=== PATIENT | male | born 1940 | race Caucasian/White ===

== ENCOUNTER → 2017-11-12 | Outpatient (CLI) | payer MEDICARE ==
--- NOTE | 2017-11-12 14:51 | CT ---
EXAMINATION TYPE: High-resolution CT chest DATE OF EXAM: 11/12/2017 COMPARISON: 03/14/2016 HISTORY: 76 year-old male shortness of breath, Chronic obstructive pulmonary disease TECHNIQUE: Contiguous high resolution axial scanning of the chest utilizing 1 mm slice thickness and 1 cm gap. No contrast was administered. Both supine and prone imaging was performed. CT DLP: 1168 mGycm Automated exposure control for dose reduction was used. FINDINGS: The heart is normal size without pericardial effusion. Coronary vessel calcifications are present and are a marker for coronary artery disease. Ectatic ascending aorta 3.8 cm. Conventional arch vessel branching anatomy with mild atherosclerotic arch calcifications. Mild ectasia upper descending thoracic aorta 3.3 cm. Moderate right and mild left gynecomastia. No thoracic lymphadenopathy seen allowing for HRCT technique. Large caliber to the main right and left pulmonary arteries of 3.5 and 2.9 cm, respectively, suggesti ng underlying pulmonary arterial hypertension. Moderate diffuse bronchial wall thickening is noted. Strandy scarring at the right upper lobe unchanged from 2016. New patchy peripheral right mid lung densities and new strandy atelectasis or scarring at the basilar right middle lobe and peripheral right base. Aside from minimal paraseptal emphysematous change along the left heart margin, axial image 16, and a long the peripheral right base, axial image 20, no significant cystic change, dominant groundglass, t hickening of the bronchovascular bundles, perilymphatic nodules, tree-in-bud opacities, or centrilobu lar nodularity. Visualized upper abdomen shows no discrete abnormality. 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 IMPRESSION: 1. GIVEN LARGE CALIBER TO THE MAIN RIGHT AND LEFT PULMONARY ARTERIES; FINDINGS SUGGEST PULMONARY PEACE RIAL HYPERTENSION. 2. MODERATE DIFFUSE BRONCHIAL WALL THICKENING. CORRELATE FOR BRONCHITIS OR UNCONTROLLED ASTHMA. THERE IS ONLY MINIMAL PARASEPTAL EMPHYSEMA. 3. SOME NEW PATCHY PERIPHERAL RIGHT MIDLUNG DENSITY. IF THERE ARE ACUTE INFECTIOUS RESPIRATORY SIGNS /SYMPTOMS, AN EARLY INFILTRATE WOULD NOT BE CONSIDERED. 4. OTHERWISE, STABLE STRANDY SCARRING RIGHT UPPER LOBE AND SOME INCREASING SCARRING OR ATELECTASIS AT THE RIGHT BASE.
== END | disposition home or self-care (01) ==
LOC: RADCTMAIN 12:58
PROVIDERS: ATTEND Internal Medicine
DX: J43.9 Emphysema, unspecified (principal); J98.4 Other disorders of lung; I77.89 Other specified disorders of arteries and arterioles
CPT/HCPCS: 71250